=== PATIENT | female | born 1995 | race Caucasian/White ===

== ENCOUNTER 2018-04-22 10:30 | Emergency (ER) | payer MEDICAID, OTHER, SELFPAY ==
[~2018-04-22] VITALS: Ht 160 cm; Wt 56.8 kg
[2018-04-22] MEDS ORDERED: CLINDAMYCIN 600 MG in APPROPRIATE DILUENT 1 EA IV ONE (11:45)
[2018-04-22 11:59] LABS: BASO # 0.1 10^3/uL (0.0-0.2); BASO % 0.3 % (0.0-1.0); EOS % 0.2 % (0.0-3.0); HEMATOCRIT 40.6 % (36.0-47.0); HEMOGLOBIN 13.2 g/dl (12.0-15.5); LYMPH # 2.1 10^3/uL (1.5-6.5); LYMPH % 13.2 % (24.0-44.0); MEAN CORPUSCULAR HEMOGLOBIN 28.6 pg (27.0-33.0); MEAN CORPUSCULAR HGB CONC 32.5 g/dl (32.0-36.5); MEAN CORPUSCULAR VOLUME 88.1 fl (80.0-96.0); MONO # 1.5 10^3/uL (0.0-0.8); MONO % 9.4 % (0.0-5.0); NEUTROPHILS % 76.5 % (36.0-66.0); PLATELET COUNT, AUTOMATED 282 10^3/uL (150-450); RED BLOOD COUNT 4.61 10^6/uL (4.00-5.40); WHITE BLOOD COUNT 15.7 10^3/uL (4.0-10.0)
[2018-04-22 12:24] LABS: HCG, SERUM QUALITATIVE NEGATIVE (NEGATIVE)
[2018-04-22 12:27] LABS: ALBUMIN 3.6 GM/DL (3.2-5.2); ALT/SGPT 15 U/L (12-78); BILIRUBIN,DIRECT 0.2 MG/DL (0.0-0.2); BILIRUBIN,TOTAL 0.8 MG/DL (0.2-1.0); BLOOD UREA NITROGEN 10 MG/DL (7-18); CALCIUM LEVEL 8.6 MG/DL (8.5-10.1); CARBON DIOXIDE LEVEL 27 MEQ/L (21-32); CHLORIDE LEVEL 103 MEQ/L (98-107); CREATININE FOR GFR 0.73 MG/DL (0.55-1.30); GLOMERULAR FILTRATION RATE > 60.0 (>60); GLUCOSE, FASTING 83 MG/DL (70-100); SODIUM LEVEL 136 MEQ/L (136-145); TOTAL PROTEIN 7.1 GM/DL (6.4-8.2)
[2018-04-22] MEDS ORDERED: CLIN150C14 PO (13:52)
[2018-04-22 14:00] VITALS: BP 111/57
--- NOTE | 2018-04-22 14:12 | REP ---
LEFT BREAST ULTRASOUND: 04/22/2018. Clinical history: Discharge from the left nipple piercing holes with swelling and pain left breast for 3 days. Findings: Sonographic evaluation of the nipple and periareolar region with attention to the 4 - 5 o'clock region. Sonographic evaluation shows dilated ducts in the retroareolar region as well as some soft tissue edema. There is no visible abscess or drainable collection by ultrasound. Impression: 1. Edematous soft tissues in the retroareolar zone in the area of the nipple in the 4- 5 o'clock position where she has swelling and pain. Some dilated ducts are seen. No drainable collection or abscess defined by ultrasound. Electronically Signed by Frandy Ruiz MD 04/22/2018 04:37 P
== END 2018-04-22 14:17 | disposition home or self-care (01) ==
LOC: M ED 10:30
DX: N61.0 Mastitis without abscess (principal)

== ENCOUNTER 2018-10-15 04:45 | Emergency (ER) | payer MEDICAID, OTHER ==
[~2018-10-15] VITALS: Ht 160 cm; Wt 58.0 kg
[~2018-10-15 04:45] MED LIST: CLIN150C14 PO
[2018-10-15] MEDS ORDERED: LIDOCAINE 1% MDV 20ML VIAL SC ONE (06:30)
[2018-10-15] MEDS ORDERED: ADACEL/BOOSTRIX VACCINE (DIPHTH/PERTUSS/ACELL/TETANUS)0.5ML SYR (90715) IM ONE (06:30)
[2018-10-15 07:18] VITALS: BP 128/66
[2018-10-15] MEDS ORDERED: NEOSPORIN OINT 0.9 GM PKT (FLOOR STOCK) TOP ONE (07:30)
--- NOTE | 2018-10-15 10:22 | REP ---
Head CT without contrast: History: Head injury. Repeat dictation. Preliminary report is provided at the time of examination by Zoya Storm Comparison study: No comparison study. CT findings: Bone window settings demonstrate an intact bony calvarium. There is no evidence of skull fracture or incidental bony calvarial lesion. The visualized paranasal sinuses appear clear. No intraorbital abnormality is seen. On soft tissue window setting images; the lateral, third, and fourth ventricles are normal in size and position. Goodrich-white differentiation pattern is normal above and below the tentorium. There are is no evidence of intracranial hemorrhage. No mass, edema, infarction, or midline shift is seen. No extra-axial fluid collection is appreciated. Impression: Negative noncontrast head CT. Electronically Signed by Farhat Pearson MD 10/15/2018 10:14 A
--- NOTE | 2018-10-15 10:24 | REP ---
CT study of the cervical spine without contrast: History: Head injury. Repeat dictation. Preliminary report is provided at the time of the examination by [facility]. Technique: Helical scanning is acquired and overlapping 2 mm high resolution axial images were generated and reviewed at bone and soft tissue window settings. Coronal and sagittal multiplanar re-formations images are generated. CT findings: There is no evidence of cervical spine element fracture. No skull base fracture is seen. Cervical vertebral body heights are preserved. Alignment is normal. Facet joints are normally aligned bilaterally at each cervical level on multiplanar re-formations images. There is no evidence of intraspinal or paraspinal hematoma. No extra vertebral abnormality is seen. Impression: Negative CT study of the cervical spine without contrast. No fracture seen. Electronically Signed by Farhat Pearson MD 10/15/2018 10:15 A
== END 2018-10-15 07:28 | disposition home or self-care (01) ==
LOC: M ED 04:45
DX: S01.81XA Laceration without foreign body of other part of head, initial encounter (principal); S20.02XA Contusion of left breast, initial encounter; Y04.8XXA Assault by other bodily force, initial encounter; Y92.018 Other place in single-family (private) house as the place of occurrence of the external cause

== ENCOUNTER → 2019-01-31 | Outpatient (REF) | payer OTHER, MEDICAID ==
[2019-01-31 17:38] LABS: BASO # 0.1 10^3/uL (0.0-0.2); BASO % 0.7 % (0.0-1.0); EOS % 0.3 % (0.0-3.0); HEMATOCRIT 38.2 % (36.0-47.0); HEMOGLOBIN 12.4 g/dl (12.0-15.5); LYMPH # 2.5 10^3/uL (1.5-5.0); MEAN CORPUSCULAR HGB CONC 32.5 g/dl (32.0-36.5); MEAN CORPUSCULAR VOLUME 89.3 fl (80.0-96.0); MONO # 0.7 10^3/uL (0.0-0.8); MONO % 8.3 % (0.0-5.0); NEUTROPHILS # 5.5 10^3/uL (1.5-8.5); NEUTROPHILS % 62.5 % (36.0-66.0); PLATELET COUNT, AUTOMATED 284 10^3/uL (150-450); RED BLOOD COUNT 4.28 10^6/uL (4.00-5.40); WHITE BLOOD COUNT 8.8 10^3/uL (4.0-10.0)
[2019-01-31 17:51] LABS: ALBUMIN 3.7 GM/DL (3.2-5.2); ALT/SGPT 16 U/L (12-78); BILIRUBIN,TOTAL 0.6 MG/DL (0.2-1.0); BLOOD UREA NITROGEN 11 MG/DL (7-18); CALCIUM LEVEL 8.8 MG/DL (8.5-10.1); CARBON DIOXIDE LEVEL 28 MEQ/L (21-32); CHLORIDE LEVEL 106 MEQ/L (98-107); CHOLESTEROL LEVEL 150 MG/DL (<200); CHOLESTEROL RISK RATIO 2.459 (<5); CREATININE FOR GFR 0.76 MG/DL (0.55-1.30); FREE T4 1.07 NG/DL (0.76-1.46); GLOMERULAR FILTRATION RATE > 60.0 (>60); GLUCOSE, FASTING 86 MG/DL (70-100); HDL CHOLESTEROL 61 MG/DL (>40); LDL CHOLESTEROL 79 MG/DL (<100); NON-HDL-C 89 MG/DL; POTASSIUM SERUM 4.2 MEQ/L (3.5-5.1); SODIUM LEVEL 138 MEQ/L (136-145); THYROID STIMULATING HORMONE 0.556 uIU/ML (0.358-3.740); TOTAL PROTEIN 7.1 GM/DL (6.4-8.2); TRIGLYCERIDES LEVEL 50 MG/DL (<150)
[2019-01-31 17:53] LABS: TOTAL 25(OH) VITAMIN D 17.2 NG/ML (30.0-100.0)
[2019-01-31 18:00] LABS: HEMOGLOBIN A1c 5.3 %
== END ==
LOC: M LAB REF 17:15
PROVIDERS: ATTEND Nurse Practitioner Family
DX: Z00.00 Encounter for general adult medical examination without abnormal findings (principal)

== ENCOUNTER → 2019-04-23 | Outpatient (CLI) | payer OTHER, MEDICAID | LOC: M PLALAB 11:10 | PROVIDERS: ATTEND Advanced Practice Midwife | DX: O36.80X0 Pregnancy with inconclusive fetal viability, not applicable or unspecified (principal); Z3A.00 Weeks of gestation of pregnancy not specified ==

== ENCOUNTER → 2019-04-26 | Outpatient (CLI) | payer OTHER ==
--- NOTE | 2019-04-26 16:46 | REP ---
Thereafter ultrasound for dating: There is an intrauterine gestational sac with a pole. The heart rate is 172 beats per minute. The pole crown-rump length is 4.4 cm. This corresponds to a gestational age of 11 weeks 2 days. The RUSH is 11/13/2019. Gestational age by LMP is 11 weeks 0 days. There is no subchorionic hematoma. The maternal adnexa and cul-de-sac are unremarkable. Electronically Signed by Bigg Kwon MD 04/26/2019 04:38 P
== END ==
LOC: M WHC 14:56
PROVIDERS: ATTEND Advanced Practice Midwife
DX: O36.80X0 Pregnancy with inconclusive fetal viability, not applicable or unspecified (principal); Z3A.11 11 weeks gestation of pregnancy

== ENCOUNTER → 2019-05-28 | Outpatient (CLI) | payer OTHER, MEDICAID | LOC: M WHC 15:55 | PROVIDERS: ATTEND Advanced Practice Midwife | DX: Z53.9 Procedure and treatment not carried out, unspecified reason (principal); Z34.02 Encounter for supervision of normal first pregnancy, second trimester; Z3A.00 Weeks of gestation of pregnancy not specified ==

== ENCOUNTER → 2019-06-12 | Outpatient (CLI) | payer MEDICAID, OTHER ==
--- NOTE | 2019-06-12 13:02 | REP ---
Obstetric ultrasound for anatomy: There is a single intrauterine gestation in an oblique lie with the head to the maternal right. There is movement and cardiac activity. The heart rate is 150 beats per minute. The placenta is posterior. There is no previa or abruptio. The placenta is grade zero. Amniotic fluid volume subjectively is normal. The cervix measures 3.3 cm. Gestational age by today's ultrasound is 17 weeks 1 day. Gestational age by the first ultrasound is 18 weeks 0 days. Gestational age by LMP of 17 weeks 5 days. The selected gestational age is 18 weeks 0 days/RUSH 11/13/2019. weight is 188 grams/0 pounds, 6 ounces. This is the 22nd percentile for 18 weeks 0 days. This is the 30th percentile for 17 weeks 5 days. The following anatomic structures are identified and are unremarkable: Cranium, choroid plexus, cavum septum pellucidum, cerebellum, cisterna magna, facial profile, upper lip, diaphragm, stomach, cord insertion, three-vessel cord, kidneys, bladder and upper lower extremities. Suboptimally demonstrated because of position are the: Four-chamber view of the heart, cardiac right and left ventricular outflow tracts and spine. A followup study dedicated to these structures might be considered. Electronically Signed by Bigg Kwon MD 06/12/2019 12:54 P
== END ==
LOC: M WHC 10:52
PROVIDERS: ATTEND Advanced Practice Midwife
DX: Z34.02 Encounter for supervision of normal first pregnancy, second trimester (principal)

== ENCOUNTER → 2019-06-26 | Outpatient (CLI) | payer MEDICAID | LOC: M WHC 14:55 | PROVIDERS: ATTEND Obstetrics & Gynecology | DX: Z34.02 Encounter for supervision of normal first pregnancy, second trimester (principal) ==

== ENCOUNTER → 2019-07-15 | Outpatient (CLI) | payer MEDICAID ==
--- NOTE | 2019-07-15 13:48 | REP ---
OB ULTRASOUND: Real-time sonographic evaluation of the gravid uterus is performed. There is a single living intrauterine gestation. The estimated gestational age is 22 weeks 3 days, EDC 11/15/2019. Today's measurements indicate appropriate growth. BPD 53 mm = 22 weeks 0 days, 41st percentile HC 203 mm = 22 weeks 3 days, 50th percentile AC 178 mm = 22 weeks 5 days, 56th percentile Femur length 37 mm = 21 weeks 5 days, 34th percentile HC/AC ratio 1.14 within normal range of 1.04-1.23. Estimated weight 490 grams, 41st percentile. Cervix is closed and measures 3.6 cm in length. heart rate 146 beats per minute. Visualized anatomy today includes: upper lip, four chamber heart, left ventricular outflow tract, stomach, cord insertion, three vessel cord, kidneys, bladder, and spine which are all grossly unremarkable. Intracranial structures were seen on the prior study. There may be a small amount of pericardial fluid. Right ventricular outflow tract is still not well visualized due to position. position transverse with head toward the maternal right side. Placenta posterior and grade 1 with no previa or abruption. Amniotic fluid within normal limits.
== END ==
LOC: M WHC 09:20
PROVIDERS: ATTEND Obstetrics & Gynecology
DX: Z34.02 Encounter for supervision of normal first pregnancy, second trimester (principal); Z3A.22 22 weeks gestation of pregnancy

== ENCOUNTER → 2019-08-09 | Outpatient (REF) | payer MEDICAID ==
[2019-08-09 13:28] LABS: HEMATOCRIT 33.3 % (36.0-47.0); HEMOGLOBIN 11.1 g/dl (12.0-15.5); MEAN CORPUSCULAR HEMOGLOBIN 30.8 pg (27.0-33.0); MEAN CORPUSCULAR HGB CONC 33.3 g/dl (32.0-36.5); MEAN CORPUSCULAR VOLUME 92.5 fl (80.0-96.0); PLATELET COUNT, AUTOMATED 215 10^3/uL (150-450); WHITE BLOOD COUNT 10.1 10^3/uL (4.0-10.0)
== END ==
LOC: M PLALAB 11:10
PROVIDERS: ATTEND Advanced Practice Midwife
DX: Z34.02 Encounter for supervision of normal first pregnancy, second trimester (principal)

== ENCOUNTER → 2019-08-20 | Outpatient (CLI) | payer MEDICAID, OTHER ==
--- NOTE | 2019-08-20 17:37 | REP ---
OB ULTRASOUND: Real-time sonographic evaluation of gravid uterus performed to followup right ventricular outflow tract, which was not seen on anatomy screening ultrasound, 07/15/2019. There is a single living intrauterine gestation. Estimated gestational age is 27 weeks 4 days, EDC 11/15/2019. Today's measurements indicate appropriate growth. BPD 69 mm = 27 weeks 4 days, 51st percentile HC 255 mm = 27 weeks 5 days, 51st percentile AC 231 mm = 27 weeks 3 days, 47th percentile Femur length 50 mm = 27 weeks 0 days, 36th percentile HC/AC ratio 1.10, within normal range 1.0-1.18. Estimated weight 1056 grams, 35th percentile. Cervix is closed and measures 3 cm in length. heart rate 140 beats per minute. Amniotic fluid within normal limits, ELOISA 14.4, normal range 9.4-22.7. Right ventricular outflow tract is visualized and is grossly unremarkable. position is vertex. Placenta is fundal and grade 0 with no previa or abruption.
== END ==
LOC: M WHC 15:22
PROVIDERS: ATTEND Advanced Practice Midwife
DX: Z34.92 Encounter for supervision of normal pregnancy, unspecified, second trimester (principal); Z36.89 Encounter for other specified antenatal screening; Z3A.27 27 weeks gestation of pregnancy

== ENCOUNTER 2019-11-19 00:33 | Inpatient (IN) | payer MEDICAID, OTHER ==
[2019-11-19] MEDS ORDERED: PENICILLIN G POTASSIUM 5 MU VIAL As Ordered ONE (02:18)
[2019-11-19] MEDS ORDERED: PENICILLIN 100,000 U/ML SYRINGE 2.5MU As Ordered ONE ×4 (05:54→18:31)
[2019-11-19] MEDS ORDERED: OXYTOCIN 30 UNITS IN 0.9% NaCl 500ML IV BAG (J2590) As Ordered ONE (09:00)
[2019-11-19] MEDS ORDERED: FENTANYL 2MCG/ML ROPIVACAINE 0.2% IN 0.9% NACL 100ML IVBAG As Ordered ONE (10:53)
[2019-11-19] MEDS ORDERED: OXYTOCIN DRIP 30 UNITS in IV 1 EA IV SCH ×2 (18:45→23:37)
[2019-11-19] MEDS ORDERED: LACTATED RINGER'S 1000 ML IV PRN (18:45)
[2019-11-19] MEDS ORDERED: NALOXONE INJ 0.4MG/1ML VIAL (J2310 PER 1MG) IV PRN (18:45)
[2019-11-19] MEDS ORDERED: REFRIGERATOR IV KEYS XX PRN (18:45)
[2019-11-19] MEDS ORDERED: LR 1,000 ML IV SCH (18:45)
[2019-11-19] MEDS ORDERED: FENTANYL/ROPIVACAINE/NACL BAG 100 ML EPIDURAL SCH (18:45)
[2019-11-19] MEDS ORDERED: EPIDURAL/PCA KEYS XX PRN (18:45)
[2019-11-19] MEDS ORDERED: EPIDURAL COMMENT XX SCH (18:45)
[2019-11-19] MEDS ORDERED: diphenhydrAMINE 50MG/ML VIAL (J1200) IV PRN (18:45)
[2019-11-19] MEDS ORDERED: ONDANSETRON 4MG/2ML VIAL IV PRN (18:45)
[2019-11-19] MEDS ORDERED: ePHEDrine SULFATE 25 MG/5 ML(5MG/ML) SYRINGE IV PRN (18:45)
[2019-11-19 22:13] LABS: MEAN CORPUSCULAR HEMOGLOBIN 29.7 pg (27.0-33.0); MEAN CORPUSCULAR HGB CONC 33.3 g/dl (32.0-36.5); MEAN CORPUSCULAR VOLUME 89.2 fl (80.0-96.0); PLATELET COUNT, AUTOMATED 286 10^3/uL (150-450); WHITE BLOOD COUNT 13.5 10^3/uL (4.0-10.0)
[2019-11-19] MEDS ORDERED: PENICILLIN G POTASSIUM IV 2.5 MU in IV 1 EA IV SCH (22:30)
[2019-11-19] MEDS ORDERED: DIBUCAINE 1% OINTMENT 30GM TOP PRN (23:45)
[2019-11-19] MEDS ORDERED: MEASLES,MUMPS,RUBELLA VACCINE INJ (MMR-II) (90707) SC SCH (23:45)
[2019-11-19] MEDS ORDERED: METHYLERGONOVINE MALEATE 0.2 MG TAB PO PRN (23:45)
[2019-11-19] MEDS ORDERED: ACETAMINOPHEN TAB 650MG DOSE (2X325MG) PO PRN (23:45)
[2019-11-19] MEDS ORDERED: ACETAMINOPHEN 500 MG TAB PO PRN (23:45)
[2019-11-19] MEDS ORDERED: ANUSOL HC CREAM 30GM TOP PRN (23:45)
[2019-11-19] MEDS ORDERED: RHOGAM 300 MCG (1500 IU) INJ (J2790) IM SCH (23:45)
[2019-11-19] MEDS ORDERED: IBUPROFEN 600MG TAB PO PRN (23:45)
[2019-11-19] MEDS ORDERED: MOM 30ML SUSPENSION UDC PO PRN (23:45)
[2019-11-19] MEDS ORDERED: DOCUSATE SODIUM 100 MG CAP PO PRN (23:45)
[2019-11-20] MEDS: IBUPROFEN 800 MG TAB PO PRN ×2 (01:37→20:05)
[2019-11-20 01:40] VITALS: BP 117/56
[2019-11-20 06:00] VITALS: BP 105/54
--- NOTE | 2019-11-20 08:23 | IPNPDOC ---
Progress Note Date of Service: Nov 20, 2019 Day#: 1 Progress Note SUBJECT: She is doing well without complaints. Ambulating, voiding and pain is well-controlled. Reports minimal lochia. +breast feeding OBJECTIVE: Alert and oriented times three. Abdomen: Fundus firm at U-2. Soft, NTTP. Ext: neg calf tenderness. ASSESSMENT: day #1 status post normal spontaneous vaginal delivery. Recovering in stable condition. PLAN: 1. Continue routine care 2. Discharge plans for tomorrow VS, I&O, 24H, Fishbone Vital Signs/I&O Vital Signs Date Time Temp Pulse Resp B/P (MAP) Pulse Ox O2 Delivery O2 Flow Rate FiO2 11/20/19 06:00 98.6 74 20 105/54 (71) 99 Room Air I&O- Last 24 Hours up to 6 AM 11/20/19 06:00 Intake Total 947 ml Balance 947 ml LYNSEY ELIAS MD. Nov 20, 2019 08:23
[2019-11-20] MEDS: PRENATAL VITAMINS CHEWABLE TABLET PO SCH (10:23)
[2019-11-20] MEDS: SERTRALINE HCL 25 MG TABLET PO SCH (10:23)
[2019-11-20 18:00] VITALS: BP 115/58
[2019-11-21 06:00] VITALS: BP 103/51
[2019-11-21] MEDS ORDERED: BOOSTRIX/ADACEL VACCINE (DIPHTH/PERTUSS/ACELL/TETANUS) 0.5ML SYR IM ONE (09:00)
[2019-11-21 09:12] LABS: CHLAMYDIA DNA AMPLIFICATION NEGATIVE (NEGATIVE); GC DNA AMPLIFICATION NEGATIVE (NEGATIVE)
[2019-11-21] MEDS: PRENATAL VITAMINS CHEWABLE TABLET PO SCH (09:45)
[2019-11-21] MEDS: IBUPROFEN 800 MG TAB PO PRN (09:46)
[2019-11-21] MEDS: SERTRALINE HCL 25 MG TABLET PO SCH (09:46)
[2019-11-23 23:23] LABS: HEPATITIS B SURFACE ANTIGEN NEGATIVE (NEGATIVE); HEPATITIS C VIRUS ABY INDEX 0.2 INDEX (<0.8); HIV 1&2 SCREEN CENTAUR NEGATIVE (NEGATIVE)
--- NOTE | 2020-01-07 07:23 | HPE ---
DATE OF ADMISSION: 11/19/2019 HISTORY OF PRESENT ILLNESS: The patient is a 24-year-old female, who is a 1, para 0 at 40 weeks and 4 days gestation with an estimated date of delivery (RUSH) OF 11/15/2019. Her has been uncomplicated. She presents to labor and delivery with complaints of contractions that are happening about every 5 minutes. She was scheduled for an elective induction of labor tomorrow at 40 weeks and 5 days. She denies any vaginal bleeding, leaking of fluid. She reports active movement. LABS: Blood type is A positive. Her blood sugar was 84. Her other labs are unavailable at this time and having to be withdrawn due to inability to obtain any former labs or charts. MEDICAL HISTORY: Anxiety, which is taking Sertraline 25 mg daily for. SURGICAL HISTORY: She had a lumpectomy of her right breast from a lump. FAMILY HISTORY: Mother with high blood pressure and her father has high blood pressure. SOCIAL HISTORY: The patient is a daycare provider, she is a current every day smoker. She denies any history of alcohol or drug abuse or use. She denies any history of physical abuse. She is associated with WIC. The father of the baby is not involved. PHYSICAL ASSESSMENT: heart rate 120, moderate variability, positive accelerations, no decelerations. Contractions every 2 to 5 minutes. Vaginal examination: 290 minus 1, soft, anterior, scant show. Vital signs: Blood pressure is 124/75, respiratory rate is 18 to 20, temperature is 98.4. Height 63 inches. Weight 74 kg. Constitutional: The patient does not appear to be in any major distress. She is alert and oriented times 3. Respiratory: Regular rate and rhythm with no use of accessory muscles. Clear to auscultation bilaterally. Cardiovascular: Regular rate and rhythm with no murmurs, rubs or gallops. Abdomen: Gravid. Palpation soft between contractions. Cephalic presentation via Le[place]olds and FCE. Extremities: Generalized edema and no pitting edema. ASSESSMENT: Intrauterine (IUP) at 40.4 weeks gestation, early active labor, group B strep (GBS) unknown, category 1 heart rate tracing. MTDD
--- NOTE | 2020-01-09 16:05 | DN ---
DATE OF DELIVERY: 11/19/2019 TIME OF : 225 GENDER: Female APGARS: 8 and 9 WEIGHT: 3020 grams or 6 pounds 11 ounces ANESTHESIA: Epidural COUNTS: Five laparotomy sponges accounted for prior to and after delivery. One sharp removed from the deliver field. LACERATIONS: First-degree midline laceration. ESTIMATED BLOOD LOSS: 300 mL. DESCRIPTION OF DELIVERY: On 11/19/2019 at 2259, Ms. Ledesma a 24-year-old 1, now para 1, had a spontaneous vaginal delivery of a live born female . Apgars 8 and 9. Weight was 3020 grams or 6 pounds 11 ounces. Head was delivered right occiput anterior (VIOLETA). There was a nuchal cord, which was immediately reduced followed by delivery of left anterior shoulder, right posterior shoulder, and corpus. The infant was handed to mom with a good cry. Cord was clamped x3 and it was cut by the support person under my direction. Placenta was then drained and delivered grossly intact. A premixed bag of 500 mL of normal saline with 30 units of Pitocin was bolused along with uterine massage. The uterus was firm. On inspection, there was a first-degree midline laceration, which was repaired with 3-0 Vicryl Rapide. On re-inspection, the cervix, vagina, and peritoneum were grossly intact and hemostatic. Mom and baby recovered in stable condition. Mom has decided to name her daughter Lorelei Moreno KALEN
== END 2019-11-21 12:26 | disposition home or self-care (01) | DRG 560 ==
LOC: M LDI 00:33 → M OBS 11-20 01:11
PROVIDERS: ADMIT Advanced Practice Midwife; ATTEND Advanced Practice Midwife
PROC: 10E0XZZ Delivery of Products of Conception, External Approach (ICD-10-PCS; principal; 2019-11-19)
PROC: 0HQ9XZZ Repair Perineum Skin, External Approach (ICD-10-PCS; 2019-11-19)
DX: O48.0 Post-term pregnancy (principal); F17.200 Nicotine dependence, unspecified, uncomplicated; Z37.0 Single live birth; Z3A.40 40 weeks gestation of pregnancy; O99.334 Smoking (tobacco) complicating childbirth; O69.81X0 Labor and delivery complicated by cord around neck, without compression, not applicable or unspecified; O70.0 First degree perineal laceration during delivery

== ENCOUNTER → 2020-03-12 | Outpatient (REF) | payer MEDICAID, OTHER | LOC: M SFHCWAGY 13:32 | PROVIDERS: ATTEND Specialist | DX: Z12.4 Encounter for screening for malignant neoplasm of cervix (principal); N88.8 Other specified noninflammatory disorders of cervix uteri ==

== ENCOUNTER → 2020-09-21 | Outpatient (CLI) | payer OTHER ==
[~2020-09-21] MED LIST changes: -CLIN150C14 PO; +CLIN150C15 PO
--- NOTE | 2020-09-21 14:37 | REP ---
INDICATION: R22.32 LT AXILLARY LUMP. COMPARISON: None. TECHNIQUE: Real-time sonographic evaluation of left axilla performed. FINDINGS: Two lymph nodes are visualized at the site of the reported palpable abnormality, both demonstrating a hypoechoic periphery and echogenic hilum. There is internal blood flow with Doppler evaluation. The lymph nodes measure 2.5 x 0.6 x 1.5 cm and 2.9 x 0.6 x 1.6 cm. Short axis dimension for each lymph node is within normal limits. There is no significant cortical thickening. IMPRESSION: There are 2 nonspecific lymph nodes identified at the site of the reported palpable abnormality in the left axilla as discussed above. Short axis dimension of each lymph node is within normal limits. There is no significant cortical thickening. Clinical correlation and follow-up recommended. <Electronically signed by Bigg Goodrich > 09/21/20 [id number]
== END ==
LOC: M WHC 12:51
PROVIDERS: ATTEND Advanced Practice Midwife
DX: R22.32 Localized swelling, mass and lump, left upper limb (principal)

== ENCOUNTER → 2020-10-23 | Outpatient (CLI) | payer OTHER ==
--- NOTE | 2020-10-23 09:09 | REP ---
INDICATION: N63.10,N63.20,R59.0,Z80.3 NILA BREAST MASS. Clinician breast exam reports a mobile for 4 x 2 cm mass in the 10 o'clock position 7 cm from the nipple in the right breast present by history since 2013. In the left breast at 7 o'clock, clinician breast exam describes a 1.5 cm smooth area of nodularity 7.5 cm from the nipple. COMPARISON: Comparison breast sonography on the right is from April 02, 2014.. TECHNIQUE: Targeted bilateral breast sonography in the areas as directed above. FINDINGS: Right breast sonography in the area the palpable lump at 10 o'clock demonstrates heterogeneous fibro nodular breast tissue. No masslike features. No architectural distortion, acoustic shadowing, or cyst cyst is seen. At 11 o'clock adjacent to the area the palpable lump there is a 0.6 cm simple cyst. In the left breast in the area of interest, normal heterogeneous fibroglandular background echotexture is seen. No cyst or mass is seen. I did not feel mammography would be helpful. IMPRESSION: BI-RADS category 2 benign findings. Clinical follow-up is advised. No suspicious abnormality. <Electronically signed by Trip Pearson > 10/23/20 [id number]
== END ==
LOC: M WHC 07:41
PROVIDERS: ATTEND Nurse Practitioner Women's Health
DX: N63.10 Unspecified lump in the right breast, unspecified quadrant (principal); N63.20 Unspecified lump in the left breast, unspecified quadrant

== ENCOUNTER → 2021-01-04 | Outpatient (CLI) | payer OTHER ==
[~2021-01-04] MED LIST changes: -CLIN150C15 PO; +CLIN150C17 PO
--- NOTE | 2021-01-04 16:25 | REP ---
INDICATION: AXILLARY ADENOPATHY. Follow-up left axillary lymph nodes. Assess size and stability. COMPARISON: Comparison study is from September 21, 2020. TECHNIQUE: Targeted left axillary soft tissue sonography. FINDINGS: Soft tissue ultrasound left axilla is performed. At the site where the patient denotes a palpable lump, there is a 1.8 x 0.5 x 1.5 cm lymph node. This appears smaller than either of the 2 larger lymph nodes seen previously. No suspicious sonographic features. No significant cortical thickening. No mass or cyst seen. IMPRESSION: The largest left axillary lymph node has decreased in size measuring 1.8 x 1.5 x 0.5 cm. BI-RADS category 2 benign findings. Clinical follow-up is advised. <Electronically signed by Trip Pearson > 01/04/21 [id number]
== END ==
LOC: M WHC 16:03
PROVIDERS: ATTEND Nurse Practitioner Women's Health
DX: R59.0 Localized enlarged lymph nodes (principal)